=== PATIENT | female | born 1975 | race Caucasian/White ===

== ENCOUNTER 2024-05-25 11:00 | Outpatient (RCR) | payer BC ==
[2024-05-15 11:40] VITALS: BP 107/70; PULSE 78; TEMP 98.5
[2024-05-18 11:31] VITALS: BP 107/73; PULSE 73; TEMP 98.3
[2024-05-20 11:26] VITALS: BP 113/69; PULSE 73; TEMP 98.5
[2024-05-22 11:00] VITALS: BP 105/71; PULSE 85; TEMP 98.4
[~2024-05-25] VITALS: Ht 165.1 cm; Wt 72.6 kg
[~2024-05-25 11:00] MED LIST: COLACE 100100 MG/CAP PO; FLONASE NASAL S16 GM NS; IRON SUCROSE IV ONE; Iron Sucrose 200 MG in NS 100 ML Over 15 minutes (5 doses/14 Days) IV SCH; LORTAB 5/500 501 TAB PO; MAGNESIUM GLYC100 MG PO; NATURAL IRON65 MG; NO HOME MEDICATIONS; NS IV ONE; PRIL40 PO; PRILOSEC10 MG PO; PROBIOTIC 2 BI1 EACH PO; VITAMIN C500 MG PO; VITAMIN D 400400 IU PO; VITAMIN D31000 I1 PO; ZYRTEC 10MG10 MG PO; ZYRTEC ALLERGY10 MG PO
[2024-05-25 11:36] VITALS: BP 107/74; PULSE 81; TEMP 98.8
--- NOTE | 2024-05-25 11:56 | NUR ---
Pt tolerated venofer without issue. IV DC'd, site wrapped with coban. She exits dept with steady gait. Free of complaints at discharge.
== END 2024-05-25 11:58 | disposition home or self-care (01) ==
LOC: EUO 11:00
DX: Z86.2 Personal history of diseases of the blood and blood-forming organs and certain disorders involving the immune mechanism (principal)
CPT/HCPCS: J1756

== ENCOUNTER → 2024-06-24 | Outpatient (CLI) | payer BC ==
[~2024-06-24] MED LIST changes: -IRON SUCROSE IV ONE; -Iron Sucrose 200 MG in NS 100 ML Over 15 minutes (5 doses/14 Days) IV SCH; -NS IV ONE
== END ==
LOC: MC.RAD 11:30
DX: Z12.31 Encounter for screening mammogram for malignant neoplasm of breast (principal)